=== PATIENT | female | born 1985 | race Hispanic/Latino ===

== ENCOUNTER 2017-06-03 15:16 | Outpatient (CLI) | payer OTHER ==
--- NOTE | 2017-06-03 19:10 | XRay Report ---
FINAL REPORT EXAM: XR SPINE LUMBOSACRAL 4+V HISTORY: CHRONIC PERIPHERAL VENOUS INSUFFICIENCY TECHNIQUE: AP, lateral, bilateral oblique, and coned-down views of the lumbar spine PRIORS: None. FINDINGS: The vertebral body heights and disc spaces are well maintained. The alignment is normal. No evidence for spondylolysis or spondylolisthesis is seen. Pedicles are intact bilaterally at all levels. The paraspinal soft tissues are unremarkable. IMPRESSION: Normal lumbar spine. Adhesions
== END 2017-06-03 15:17 | disposition home or self-care (01) ==
LOC: XRAY 15:16
PROVIDERS: ATTEND Surgery Vascular Surgery
DX: I87.2 Venous insufficiency (chronic) (peripheral) (principal); M43.27 Fusion of spine, lumbosacral region
CPT/HCPCS: 72110

== ENCOUNTER 2017-06-16 09:00 | Outpatient (CLI) | payer OTHER ==
--- NOTE | 2017-06-16 12:24 | Ultrasound Report ---
ULTRASOUND PELVIC COMPLETE ULTRASOUND TRANSVAGINAL HISTORY: Venous insufficiency. COMPARISON: None. TECHNIQUE: Transabdominal and transvaginal ultrasound with color doppler interrogation. FINDINGS: The uterus and ovaries are normal size, contour and echotexture. No evidence for uterine fibroid disease, pelvic cyst or mass. The endometrium measures 3 mm. No pelvic fluid or mass is identified. Normal color doppler interrogation. IMPRESSION: Unremarkable transabdominal and transvaginal pelvic ultrasounds.
== END 2017-06-16 09:01 | disposition home or self-care (01) ==
LOC: US 09:00
PROVIDERS: ATTEND Surgery Vascular Surgery
DX: I87.2 Venous insufficiency (chronic) (peripheral) (principal)
CPT/HCPCS: 76830; 76856